=== PATIENT | female | born 1945 | race Caucasian/White ===

== ENCOUNTER 2024-12-09 08:10 | Outpatient (CLI) | payer OTHER | END 2024-12-09 08:12 | disposition home or self-care (01) | LOC: SONOGRAMA 08:10 | PROVIDERS: ATTEND Pathology Anatomic Pathology | DX: D34 Benign neoplasm of thyroid gland (principal); E07.89 Other specified disorders of thyroid; E04.2 Nontoxic multinodular goiter ==